=== PATIENT | male | born 1965 | race Hispanic/Latino ===

== ENCOUNTER 2017-06-29 11:47 | Emergency (ER) | payer MEDICARE, OTHER ==
[~2017-06-29] VITALS: Ht 175.3 cm; Wt 69.4 kg
[~2017-06-29 11:47] MED LIST: AMBIEN5 MG PO; AMITIZA24 MCG PO; ARTIFICIAL TEA1 EAC1; ARTIFICIAL TEAR15 ML OP; ASCORBIC ACID500 MG PO; ATIVAN0.5 MG PO; BACLOFEN10 MG PO; BENADRYL25 M1; CALCIUM 500 MG1 EACH; CENTRAVITES 501 EACH; CLARITIN-D 241 EACH PO; CLONIDINE HCL0.1 MG PO; COMPRO25 MG PO; DETROL LA4 MG PO; FLUDROCORTISON0.1 MG PO; GABAPENTIN300 MG PO; GERI-LANTA LIQ355 ML; GUIATUSS AC SY120 ML; HYDROCODON-ACE1 EAC9; LACTULOSE20 GM/30 M PO; LEVAQUIN500 MG PO; LOPRESSOR25 MG PO; MAALOX ADVANCE770 ML PO; NYSTATIN15 G2 TP; OXYBUTYNIN CHLOR5 M1 PO; POTASSIUM CHLO10 ME1 PO; TEMAZEPAM15 MG; TESSALON PERLE100 MG PO; TYLENOL325 MG PO; claritin PO
[2017-06-29] MEDS ORDERED: DIATRIZOATE MEGL/DIATRIZOA SOD 30 ML BTL PO ONE (12:24)
[2017-06-29 12:49] LABS: BASOPHILS # (AUTO) 0.1 (0.0-0.1); BASOPHILS % 0.8 % (0.0-1.0); EOSINOPHILS # (AUTO) 0.2 (0.0-0.4); EOSINOPHILS % 2.4 % (0.0-6.0); HEMATOCRIT 41.1 % (38.2-49.6); HEMOGLOBIN 14.4 g/dL (14.0-18.0); MONOCYTES # (AUTO) 0.8 (0.2-0.8); MONOCYTES % 9.2 % (4.4-11.3); NEUTROPHILS # (AUTO) 5.4 (2.1-6.9); NEUTROPHILS % 64.1 % (38.7-80.0); PLATELET COUNT 234 x10e3/uL (140-360); RED BLOOD COUNT 5.14 x10e6/uL (4.3-5.7); RED CELL DISTRIBUTION WIDTH 12.8 % (11.7-14.4)
[2017-06-29 13:06] LABS: ALANINE AMINOTRANSFERASE 21 IU/L (0-55); ALBUMIN 3.4 g/dL (3.5-5.0); ALBUMIN/GLOBULIN RATIO 0.9 (0.8-2.0); ALKALINE PHOSPHATASE 85 IU/L (40-150); ANION GAP 13.9 mmol/L (8-16); BLOOD UREA NITROGEN 16 mg/dL (7-26); BUN/CREATININE RATIO 22 (6-25); CALCIUM 9.4 mg/dL (8.4-10.2); CARBON DIOXIDE 25 mmol/L (22-29); CHLORIDE 93 mmol/L (98-107); CREATININE, SERUM 0.72 mg/dL (0.72-1.25); EST GLOMERULAR FILTRATION RATE > 60 ML/MIN (60-); GLUCOSE 99 mg/dL (74-118); POTASSIUM 3.9 mmol/L (3.5-5.1); SODIUM 128 mmol/L (136-145)
[2017-06-29 13:25] LABS: CLARITY,URINE CLEAR (CLEAR); COLOR,URINE STRAW (YELLOW); LEUKOCYTE ESTERASE ,URINE 1+ (NEGATIVE); NITRITE,URINE NEGATIVE (NEGATIVE)
[2017-06-29 13:26] LABS: BILIRUBIN,URINE NEGATIVE (NEGATIVE); KETONES,URINE NEGATIVE (NEGATIVE); PROTEIN,URINE DIPSTICK 2+ (NEGATIVE); URINE UROBILINOGEN 0.2 mg/dL (0.2 - 1)
[2017-06-29 13:30] LABS: BACTERIA,URINE FEW /HPF; EPITHELIAL CELLS,URINE RARE /LPF; RBC,URINE 0-5 /HPF (0-5)
--- NOTE | 2017-06-29 14:44 | Diagnostic Imaging Report ---
This report includes an Addendum and supersedes previous reports for this exam. PROCEDURE: CT ABDOMEN AND PELVIS WITH CONTRAST TECHNIQUE: The abdomen and pelvis were scanned utilizing a multidetector helical scanner from the diaphragm to the lesser trochanter after the IV administration of 100 cc of Isovue 370 and the oral administration of dilute Gastrografin. Coronal and sagittal multiplanar reformations were obtained. COMPARISON: [facility], CT, CT ABDOMEN/PELVIS W, 08/23/2015, 14:30. INDICATIONS: ABDOMEN PAIN FINDINGS: LOWER THORAX: Trace bilateral pleural effusions with mild compressive atelectasis in bilateral lower lobes. HEPATOBILIARY: Stable 1.1 cm fluid density lesion in hepatic segment VIII near the IVC (series 2, image 5), consistent with a simple cyst. Interval increase in size of 1.8 x 2.0 cm fluid density lesion in hepatic segment IVB (series 2, image 13), consistent with a simple cyst (previously measured 1.3 x 1.5 cm). No other focal hepatic lesions. No biliary ductal dilation. Gallbladder is unremarkable. SPLEEN: No splenomegaly. PANCREAS: No focal masses or ductal dilatation. 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 The right adrenal gland is unremarkable KIDNEYS/URETERS: Interval worsening of bilateral hydronephrosis, which is now moderate on the right and moderate to marked on the left. Mild bilateral hydroureters. No renal or ureteral calculi. Stable right renal cortical scarring. No solid enhancing masses. PELVIC ORGANS/BLADDER: Bladder is decompressed and there is a suprapubic catheter in place. Moderate circumferential bladder wall thickening. Mild perivesical stranding. PERITONEUM / RETROPERITONEUM: No free air or fluid. LYMPH NODES: No lymphadenopathy. VESSELS: Unremarkable. GI TRACT: No bowel dilation or evidence of obstruction. Stable double barrel colostomy in the left lower quadrant. There is stable fat-containing parastomal hernia (series 2, image 61). Appendix is well identified, and normal in caliber. BONES AND SOFT TISSUES: No aggressive lytic lesion. Degenerative disc changes in the thoracic spine. Stable 6 mm bone island in the left iliac bone. Stable orthopedic hardware in the proximal right femur. Stable small fat containing umbilical hernia. IMPRESSION: 1. no acute abdominopelvic abnormalities. No bowel dilation or evidence of obstruction. 2. Interval worsening of bilateral hydronephrosis which is now moderate on the right and moderate to marked on the left, with associated mild hydroureter. No obstructing stone or ureteral mass. 3. Interval worsening of circumferential bladder wall thickening. This may reflect chronic inflammatory or infectious cystitis, however, underlying neoplasm is also a consideration. 4. Stable 1.2 cm left adrenal myelolipoma. 5. Interval increase in size of 2.0 cm simple hepatic cyst. 6. Trace bilateral pleural effusions with mild compressive atelectasis in bilateral lower lobes. Rikki Nieves M.D. Dictated by: Rikki Nieves M.D. on 06/29/2017 at 14:45 Electronically approved by: Rikki Nieves M.D. on 06/29/2017 at 14:45 ADDENDUM: Interval increase in size of indeterminate 1.1 x 1.2 x 1.7 cm partly exophytic lesion in the inferior pole of the left kidney with a measured density of 76-80 HU (series 2, image 37, and sagittal image 95), which previously measured 0.8 x 0.6 x 0.7 cm. This may represent a hemorrhagic cyst, however, an enhancing solid lesion can't be excluded on this single phase exam. Recommend contrast enhanced CT abdomen with renal mass protocol for further evaluation. Rikki Nieves M.D. Dictated by: Rikki Nieves M.D. on 06/29/2017 at 17:44 Electronically approved by: Rikki Nieves M.D. on 06/29/2017 at 17:44
[2017-06-29 15:41] VITALS: BP 114/83
== END 2017-06-29 18:03 | disposition home or self-care (01) ==
LOC: ER 12:04
DX: R10.84 Generalized abdominal pain (principal); N30.90 Cystitis, unspecified without hematuria; G82.50 Quadriplegia, unspecified; E78.5 Hyperlipidemia, unspecified; K21.9 Gastro-esophageal reflux disease without esophagitis; F32.9 Major depressive disorder, single episode, unspecified
CPT/HCPCS: 36415; 74177; 80053; 81001; 83605; 85025; 99284

== ENCOUNTER → 2017-10-04 | Day surgery (SDC) | payer MEDICARE, MEDICAID ==
[~2017-10-04] MED LIST changes: +CYMBALTA20 MG PO; +DEXAMETHASONE SOD PHOS INJ 4 MG/ML VIAL ONE; +DOCUSATE SODIU100 MG PO; +GENTAMICIN 80MG/NS 100 ML 100 ML IV ONE; +HYDRALAZINE HCL 20 MG/ML VIAL ONE; +HYDRALAZINE HCL10 MG PO; +IOPAMIDOL 300MG/ML 50ML INFUS..BTL IV ONE; +LIDOCAINE HCL 2% LOCAL INJ 5 ML SDV VIAL INJ ONE; +MIDAZOLAM HCL 2 MG/2 ML VIAL ONE; +MUPIROCIN 2% OINT 22 GM TUBE ONE; +ONDANSETRON HCL INJ 2 MG/ML VIAL ONE; +PROPOFOL IV EMULSION 10 MG/ML 20 ML VIAL ONE; +SEVOFLURANE INHAL SOLN 250 ML PEN BTL ONE
--- NOTE | 2017-10-05 14:13 | Operative Report ---
DATE OF PROCEDURE: October 04, 2017 PREOPERATIVE DIAGNOSES 1. Gross hematuria. 2. Urinary retention. POSTOPERATIVE DIAGNOSES 1. Gross hematuria. 2. Urinary retention. PROCEDURES 1. Cystourethroscopy with evacuation of clots (entirely separate procedure for diagnosis of gross hematuria with large obstructing clots). 2. Complicated suprapubic tube exchange (entirely separate procedure complicated secondary to granulation tissue and separate procedure for urinary retention). ANESTHESIA: General. ESTIMATED BLOOD LOSS: Minimal. COMPLICATIONS: None. INDICATIONS: Mr. Gómez is a 52-year-old male with a history of gross hematuria, end-stage neurogenic bladder now presenting for cystoscopy. He voiced understanding of the options, alternatives, risks, and benefits and elected to proceed. PROCEDURE IN DETAIL: After informed consent was obtained, the patient was preoperatively identified and placed on the operating table. The suprapubic tube was removed. Cystoscope was introduced per suprapubic tube tract. There was granulation tissue which was bleeding. Pressure was held until it stopped. Panendoscopy of the bladder revealed severely trabeculated bladder, end-stage neurogenic. The proximal urethra and prostate appeared normal. Clots were evacuated. The remainder of the exam was normal. There were no tumors. There were stones. The suprapubic tube was replaced draining crystal clear irrigant. The patient was awakened from anesthesia and transported to the recovery room in excellent condition with no untoward effects. Job#: [id number] RI cc:SARAH DUONG MD
== END | disposition home or self-care (01) ==
LOC: OR 14:00
PROVIDERS: ATTEND Urology
DX: R31.0 Gross hematuria (principal); N31.8 Other neuromuscular dysfunction of bladder; N32.89 Other specified disorders of bladder; Z93.50 Unspecified cystostomy status; G82.50 Quadriplegia, unspecified; I10 Essential (primary) hypertension; F41.9 Anxiety disorder, unspecified; Z88.1 Allergy status to other antibiotic agents; Z88.0 Allergy status to penicillin; Z88.8 Allergy status to other drugs, medicaments and biological substances; Z87.01 Personal history of pneumonia (recurrent)
CPT/HCPCS: 51705; 52001; 74420; 93005; C1758; J0360; J1100; J1580; J2001; J2250; J2405; Q9967